=== PATIENT | male | born 1955 | race Caucasian/White ===

== ENCOUNTER 2017-05-02 18:53 | Emergency (ER) | payer BC ==
--- NOTE | 2017-05-02 19:00 | ED.PDOC ---
History of Present Illness - General Chief Complaint: Allergic Reaction Stated Complaint: facial swelling Time Seen by Provider: 05/02/17 18:59 Source: patient Exam Limitations: no limitations - History of Present Illness Initial Comments: Darnell Leal 61 y/o male stated that had tender right sided facial swelling which started several hours after taking ibuprofen and also presently taking oral antibiotics and oral steroid for sinus infection. Timing/Duration: 1-3 hours Severity: moderate Improving Factors: nothing Worsening Factors: nothing Associated Symptoms: other - nasal congestion Allergies/Adverse Reactions: Allergies NO KNOWN ALLERGY Allergy (Verified 05/02/17 19:21) Review of Systems - Review of Systems Constitutional: States: no symptoms reported EENTM: States: see HPI, nose congestion, other Respiratory: States: no symptoms reported Cardiology: States: no symptoms reported Skin: States: no symptoms reported All other Systems: Reviewed and Negative Past Medical History (General) - Patient Medical History Hx of COPD: Yes Surgical History: no surgical history - Social History Hx Tobacco Use: Yes Family Medical History - Family History Brother Hx Family Cancer: Yes - colon Mother Hx Family;Other: Thyroid issues Physical Exam - Physical Exam General Appearance: Alert, Comfortable, No apparent distress, Other - right cheek swollen Eye Exam: bilateral normal, bilateral other - PERRLA/EOMI bilaterally Ears, Nose, Throat: hearing grossly normal, nasal congestion, other - dental decay molar upper right; Neck: non-tender, full range of motion, supple Respiratory: lungs clear, normal breath sounds Cardiovascular/Chest: normal peripheral pulses, regular rate, rhythm, no murmur Peripheral Pulses: radial,right: 2+, radial,left: 2+ Gastrointestinal/Abdominal: normal bowel sounds, non tender, soft, no organomegaly Back Exam: no CVA tenderness, no vertebral tenderness Neurologic: alert, normal mood/affect, oriented x 3 Skin Exam: normal color, warm/dry Lymphatic: no adenopathy Progress - Progress Progress: 05/02/17 20:55 Vital Signs - 8 hr 05/02/17 19:06 Temperature 98.3 F Pulse Rate [ 88 left] Respiratory 18 Rate Blood Pressure 169/89 [left] O2 Sat by Pulse 96 Oximetry 05/02/17 20:56 Recommend to be transferred to [facility] after explaining facial ct scan findings with facial cellulitis,sinusitis and possible basilar artery aneurysm 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 - Results/Orders Results/Orders: 05/02/17 19:17 IV Care:Saline Lock per Protoc QSHIFT 05/02/17 20:32 Piperacillin/Tazobactam [Zosyn] 3.375 gm Sodium Chloride 0.9% 100Ml [NS (NACL 0.9%) 100ml] 100 ml IVPB ONCE Laboratory Results WBC 16.8 K/mm3 (4.8-10.8) H 05/02/17 19:40 RBC 5.57 M/mm3 (4.70-6.10) 05/02/17 19:40 Hgb 17.7 gm/dL (14.0-18.0) 05/02/17 19:40 Hct 51.2 % (42.0-52.0) 05/02/17 19:40 MCV 91.8 fl (80.0-94.0) 05/02/17 19:40 MCH 31.8 pg (27.0-31.0) H 05/02/17 19:40 MCHC 34.7 g/dL (33.0-37.0) 05/02/17 19:40 RDW 13.3 % (11.5-14.5) 05/02/17 19:40 Plt Count 145 K/mm3 (130-400) 05/02/17 19:40 MPV 8.9 fl (7.40-10.4) 05/02/17 19:40 Absolute Neuts (auto) 12.50 K/uL (1.8-6.8) H 05/02/17 19:40 Absolute Lymphs (auto) 2.90 K/uL (1.0-3.4) 05/02/17 19:40 Absolute Monos (auto) 1.10 K/uL (0.2-0.8) H 05/02/17 19:40 Absolute Eos (auto) 0.20 K/uL (0.0-0.4) 05/02/17 19:40 Absolute Basos (auto) 0.10 K/uL (0.0-0.1) 05/02/17 19:40 Neutrophils % 74.3 % (42.0-78.0) 05/02/17 19:40 Lymphocytes % 17.1 % (20.0-50.0) L 05/02/17 19:40 Monocytes % 6.7 % (2.0-9.0) 05/02/17 19:40 Eosinophils % 1.3 % (1.0-5.0) 05/02/17 19:40 Basophils % 0.6 % (0.0-2.0) 05/02/17 19:40 Sodium 139 mmol/L (135-145) 05/02/17 19:40 Potassium 3.5 mmol/L (3.6-5.0) L 05/02/17 19:40 Chloride 102 mmol/L (101-111) 05/02/17 19:40 Carbon Dioxide 27 mmol/L (21-31) 05/02/17 19:40 Anion Gap 13.5 (12-18) 05/02/17 19:40 BUN 15 mg/dL (7-18) 05/02/17 19:40 Creatinine 0.62 mg/dL (0.6-1.3) 05/02/17 19:40 BUN/Creatinine Ratio 24.2 (10-20) H 05/02/17 19:40 Random Glucose 158 mg/dL (70-105) H 05/02/17 19:40 Serum Osmolality 281.7 mOsm/L (275-295) 05/02/17 19:40 Calcium 9.1 mg/dL (8.4-10.2) 05/02/17 19:40 C-Reactive Protein 0.6 mg/dL (0-1.0) 05/02/17 19:40 - EKG/XRAY/CT CT Ordered: Yes - face-facial cellulitis,dental abscess,maxillary sinusitis right Departure - Departure Clinical Impression: Facial cellulitis, Dental abscess Sinusitis, acute maxillary Qualifiers: Recurrence: not specified as recurrent Qualified Code(s): J01.00 - Acute maxillary sinusitis, unspecified Time of Disposition: 21:05 Disposition: Discharge to Home or Self Care Condition: Fair Departure Forms: ED Discharge - Pt. Copy, Patient Portal Self Enrollment Instructions: Sinusitis, DI for Sinusitis, Tooth Abscess, DI for Tooth Abscess Diet: other - soft diet only Additional Instructions: NEED TO FOLLOW UP WITH S OUTPATIENT CLINIC IN AM 03 May 2017
[2017-05-02 19:20] VITALS: TEMP 98.3; O2SAT 96
--- NOTE | 2017-05-02 20:16 | CT ---
EXAM DATE: 05/02/2017 7:15 PM CDT. PROCEDURE: CT SINUSES WITHOUT IV CONTRAST. INDICATION: facial swelling. COMPARISON: None. TECHNIQUE: Axial CT images of the face were obtained without intravenous contrast. Coronal and sagittal reformatted images are provided. This exam was performed according to our departmental dose-optimization program which includes use of Automated Exposure Control, adjustment of the mA and/or kV according to patient size and/or use of iterative reconstruction technique. FINDINGS: There is soft tissue fullness involving the right buccal space, right nasal labial fold, right malar face, extending to the right infraorbital region. Soft tissue fullness is associated with fat stranding. No drainable fluid collection. Inferior extent of phlegmon is not imaged on this exam. Small focus of subcutaneous emphysema within the preantral soft tissues of the right, image 17 series 2. Visualized maxillary teeth demonstrate periapical lucencies. Complete opacification of the left maxillary sinus and partial opacification of the right maxillary sinus. Soft tissue fullness of the anterior nasal cavity at the level of the ethmoid air cells. Paranasal sinuses otherwise within normal limits. Leftward deviation of the nasal septum. There is slight right proptosis. Bilateral cataract surgery. Intraorbital fat demonstrates no inflammatory change. Symmetric extraocular muscles. No acute facial fracture. There is prominence of the basilar tip measuring 6 mm transverse and 8 mm craniocaudal which extends beyond the bifurcation of the posterior cerebral arteries. The remainder of the intracranial contents are unremarkable. IMPRESSION: Extensive right facial soft tissue swelling with the inferior aspect not completely imaged. Findings are compatible with phlegmonous change however no drainable fluid collection is identified. A small focus of subcutaneous emphysema within the preantral phlegmon may indicate aggressive sinus infection. Alternative etiologies would include dental disease given extensive odontogenic disease. 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 CT angiography is recommended for further evaluation. Critical findings discussed with Dr. NING VELEZ by Rik Acharya MD at 05/02/2017 8:15 PM CDT by phone. Electronically signed by: Rik Acharya MD 05/02/2017 8:15 PM CDT
[2017-05-02] MEDS ORDERED: PIPERACILLIN/TAZOBACTAM 3.375 GM in SODIUM CHLORIDE 0.9% 100ML 100 ML IVPB ONE (20:32)
[2017-05-02] MEDS ORDERED: SODIUM CHLORIDE 0.9% 100ML 100 ML IVPB ONE (20:35)
[2017-05-02] MEDS ORDERED: PIPERACILLIN/TAZOBACTAM 3.375 GM VIAL IVPB ONE (20:35)
[2017-05-02] MEDS ORDERED: CLINDAMYCIN HCL CAP (ER DISP) 150 MG CAP PO ONE (21:03)
[2017-05-02] MEDS ORDERED: HYDROCOD/APAP 7.5/325 (ER DISP) #3 TAB PO ONE (21:03)
[2017-05-02 21:51] VITALS: BP 147/82
== END 2017-05-02 21:54 | disposition home or self-care (01) ==
LOC: ER 18:53
DX: K04.7 Periapical abscess without sinus (principal); L03.211 Cellulitis of face; J01.00 Acute maxillary sinusitis, unspecified
CPT/HCPCS: 36415; 70486; 80048; 85025; 86140; J2543; J7050